=== PATIENT | female | born 1995 | race Caucasian/White ===

== ENCOUNTER → 2016-09-19 | Outpatient (CLI) | payer OTHER ==
[2016-09-22 13:43] LABS: EHRLICHIA CHAFFEENSIS G ABY <1:16 (<1:16)
[2016-09-22 15:46] LABS: TULAREMIA ANTIBODY <1:20
[2016-09-22 15:47] LABS: IGG ROCKY MOUNTAIN SPOTTED FEV <1:16 (<1:16); IGM ROCKY MOUNTAIN SPOTTED FEV <1:10 (<1:10)
[2016-09-23 11:24] LABS: LYME ANTIBODY C 0.25 (0.00-0.90)
== END ==
LOC: LAB 14:43
PROVIDERS: ATTEND Nurse Practitioner Family
DX: R21 Rash and other nonspecific skin eruption (principal); W57.XXXA Bitten or stung by nonvenomous insect and other nonvenomous arthropods, initial encounter; Y99.8 Other external cause status
CPT/HCPCS: 36415; 86618; 86666; 86668; 86757

== ENCOUNTER → 2017-03-24 | Outpatient (CLI) | payer OTHER ==
[~2017-03-24] MED LIST: IOHEXOL 350 MG/ML 100 ML (OMNIPAQUE 350) VIAL IV ONE; NS 100 ML (IVPB) BAG IV ONE
--- NOTE | 2017-03-24 15:38 | Diagnostic Imaging Report ---
PROCEDURE: CT abdomen and pelvis with contrast, rule out appendicitis. TECHNIQUE: Multiple contiguous axial images were obtained through the abdomen and pelvis after the administration of intravenous contrast. INDICATION: Right lower quadrant pain. COMPARISON: None. FINDINGS: Calcified granuloma in the right lung base. The lung bases are otherwise clear. The liver, gallbladder, pancreas, spleen, adrenals, kidneys, collecting systems, bladder and appendix are negative. No free intraperitoneal air or fluid. No lymphadenopathy. No evidence of bowel obstruction. There is nonspecific general prominence of the cervix. Reproductive structures are otherwise unremarkable. Osseous structures are negative. IMPRESSION: 1. No acute CT findings in the abdomen or pelvis. 2. Nonspecific prominence of the cervix. This could be better evaluated with direct visualization. Dictated by: Dictated on workstation # [id number]
== END ==
LOC: RAD 14:53
PROVIDERS: ATTEND Nurse Practitioner Family
DX: R10.31 Right lower quadrant pain (principal)
CPT/HCPCS: 74177

== ENCOUNTER → 2017-07-14 | Outpatient (CLI) | payer OTHER ==
--- NOTE | 2017-07-14 08:28 | Diagnostic Imaging Report ---
PROCEDURE: MRI left joint lower extremity without contrast. TECHNIQUE: Multiplanar, multisequence non contrast-enhanced MRI of the left lower extremity was accomplished. INDICATION: Lateral left knee pain after being kicked by horse. FINDINGS: The anterior cruciate and posterior cruciate ligaments are intact. Both the superficial and deep components of the medial collateral ligament are intact. The biceps femoris, tibial collateral and iliotibial bands are intact. Both the medial and lateral menisci are normal in signal intensity and morphology. The patellar tendon and quadriceps tendons are intact. There is very minimal knee joint effusion. The articular cartilage is well maintained in all three knee joint compartments. There is some minimal subcutaneous edema along the lateral aspect of the knee adjacent to the lateral femoral condyle. There are no other discrete fluid collections or masses. IMPRESSION: Subcutaneous edema along the lateral aspect of the knee likely soft tissue contusion. Minimal knee joint effusion. No other internal derangement of the knee. Dictated by: Dictated on workstation # [id number]
== END ==
LOC: RAD 06:57
PROVIDERS: ATTEND Orthopaedic Surgery
DX: M25.562 Pain in left knee (principal); R60.0 Localized edema; W55.12XA Struck by horse, initial encounter
CPT/HCPCS: 73721

== ENCOUNTER → 2019-05-31 | Outpatient (CLI) | payer OTHER ==
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
== END ==
LOC: RAD 16:35
PROVIDERS: ATTEND Nurse Practitioner Family
DX: M54.2 Cervicalgia (principal); M25.512 Pain in left shoulder; M54.6 Pain in thoracic spine; V89.2XXA Person injured in unspecified motor-vehicle accident, traffic, initial encounter
CPT/HCPCS: 72040; 72072; 73030